=== PATIENT | female | born 1940 | race Caucasian/White ===

== ENCOUNTER 2023-01-13 08:43 | Outpatient (CLI) | payer MEDICARE, OTHER | END 2023-01-13 08:44 | disposition home or self-care (01) | LOC: CSHRAD 08:43 | PROVIDERS: ATTEND Neurological Surgery | DX: M50.20 Other cervical disc displacement, unspecified cervical region (principal); M47.812 Spondylosis without myelopathy or radiculopathy, cervical region | CPT/HCPCS: 72040 ==